=== PATIENT | female | born 1965 ===

== ENCOUNTER 2020-12-31 06:55 | Day surgery (SDC) | payer OTHER, SELFPAY ==
[2020-12-24 11:24] VITALS: BMI 26.2
--- NOTE | 2020-12-26 12:05 | P.CONAN_ITS ---
HPI - Anesthesia Eval Consult details Narrative: 55yo F for Upper Endoscopy PMFSH Past Medical History Medical History Allergic rhinitis Asthma Environmental allergies GERD (gastroesophageal reflux disease) Surgical History Surgical History Hx of colonoscopy Hx of ovarian cystectomy Social History Social History Are you a primary career placement services counselor to a significant other at home: No Do you presently have visiting nurse or other home services: No Use of substances other than those prescribed or required for medical reasons: No Have you been hit, kicked, punched, or otherwise hurt by someone within the past year? If so, by whom?: No Are you DNR?: No Advance Directives: No Advance Directives Information Provided: No Advance Directives on File: No Recently lost weight without trying: No Eating poorly because of decreased appetite: No Nutrition Risks: No Nutritional Risk Patient : No Meds Allergies Allergy/AdvReac Type Severity Reaction Status Date / Time No Known Allergies Allergy Unverified 12/24/20 11:06 Home Medications Medication Instructions Recorded Confirmed Last Taken Type albuterol sulfate [ProAir HFA] 2 puff INHALATION Q6H PRN 12/24/20 12/24/20 Unknown History fexofenadine-pseudoephedrine 1 tab PO Q12H PRN 12/24/20 12/24/20 Unknown History [Ariella-D 12 Hour] fluticasone propionate 1 spray INTRANASAL DAILY 12/24/20 12/24/20 Unknown History omeprazole 20 mg PO DAILY 12/24/20 12/24/20 Unknown History Exam Exam Date and Time: December 26, 2020 1205 Height,Weight and Vital Signs: Height 4 ft 11 in Weight 58.967 kg Assessment and Plan Assessment Anesthesia Assessment: Chart Reviewed
[2020-12-31 07:10] VITALS: BP 145/86; PULSE 85; RESP 16; TEMP 36.6; O2SAT 97
[2020-12-31] MEDS: Lactated Ringers 1,000 ML 100 ML IVCONT (07:24)
--- NOTE | 2020-12-31 07:56 | HO.ANESPROP2 ---
[facility] Past Medical History Medical History Allergic rhinitis Asthma Environmental allergies GERD (gastroesophageal reflux disease) Surgical History Surgical History Hx of colonoscopy Hx of ovarian cystectomy Social History Social History Are you a primary pharmacy customer care specialist to a significant other at home: No Do you presently have visiting nurse or other home services: No Use of substances other than those prescribed or required for medical reasons: No Have you been hit, kicked, punched, or otherwise hurt by someone within the past year? If so, by whom?: No Are you DNR?: No Advance Directives: No Advance Directives Information Provided: No Advance Directives on File: No Recently lost weight without trying: No Eating poorly because of decreased appetite: No Nutrition Risks: No Nutritional Risk Patient : No Meds Allergies Allergy/AdvReac Type Severity Reaction Status Date / Time No Known Allergies Allergy Unverified 12/24/20 11:06 Active Medications: Current Medications Generic Name Dose Route Start Last Admin Trade Name Freq PRN Reason Stop Dose Admin Albuterol Sulfate 2.5 mg 12/31/20 07:03 Albuterol Sulfate (0.083%) 2.5 Mg/3 Ml Vial.Neb INHALE ONCE PRN Shortness of Breath/Wheezing Lactated Ringer's 1,000 mls @ 100 mls/hr 12/31/20 07:15 12/31/20 07:24 Lr IVCONT 100 mls/hr .Q10H ARACELIS Administration Home Medications Medication Instructions Recorded Confirmed Last Taken Type albuterol sulfate [ProAir HFA] 2 puff INHALATION Q6H PRN 12/24/20 12/24/20 Unknown History fexofenadine-pseudoephedrine 1 tab PO Q12H PRN 12/24/20 12/24/20 Unknown History [Ariella-D 12 Hour] fluticasone propionate [Flonase] 1 spray INTRANASAL DAILY 12/24/20 12/24/20 Unknown History omeprazole 20 mg PO DAILY 12/24/20 12/24/20 Unknown History Exam Exam Date and Time: December 31, 2020 0756 Height,Weight and Vital Signs: Height 4 ft 11 in Weight 58.967 kg Last Vital Signs Temp 97.8 F 12/31/20 07:10 Pulse 85 12/31/20 07:10 Resp 16 12/31/20 07:10 BP 145/86 H 12/31/20 07:10 Pulse Ox 97 12/31/20 07:10 Airway Mallampati Class: II TM Dist: >3cm Neck ROM: Full Heart: RRR Lungs: CTA
--- NOTE | 2020-12-31 07:57 | MHC.SHP ---
Pre-Procedural Eval Section B Chief Complaint: reflux Details of Present Illness: see H&P no changes Relevant Family History (Specify if Yes): No Relevant Social History: None Present Medications: see Short Stay Collaborative assessment Medical History: No relevant PMH History of Previous Operations: No relevant previous surgery Allergies: Allergies Allergy/AdvReac Type Severity Reaction Status Date / Time No Known Allergies Allergy Unverified 12/24/20 11:06 Review of Systems Sugical H&P ROS: Negative: Constitution, Cardiovascular, Respiratory, Neurological, Psychiatric, Hem-Onc, Allergic/Immunologic, Gastrointestinal, Genitourinary, Musculoskeletal, Integumentary, Endocrine and Eyes/Ears/Nose/Throat Exam Surgical H&P Exam: Normal: HEENT, Normal: Heart, Normal: Lungs, Normal: Extremities, Normal: Abdomen, Normal: Skin and Normal: Neurological Plan Diagnosis/Plan: Unchanged I have reviewed the history and physical and performed a pertinent physical examination on my patient. No changes have occurred unless specified.
--- NOTE | 2020-12-31 08:15 | PM.OP ---
Brief Operative Note Date of Service: 12/31/20 Pre-op diagnosis: gerd, abnl ugi series Procedure: egd Surgeon: Larry Velez Anesthesia: MAC Was an Table Games Shift Manager used for this Procedure?: No Estimated blood loss (mL): 5 Pathology: other (bxs antrum, egj, duodenum) Condition: stable Disposition: PACU
[2020-12-31 08:19] VITALS: BP 112/67; PULSE 92; RESP 16; TEMP 36.4; O2SAT 96
[2020-12-31 08:34] VITALS: BP 118/79; PULSE 82; RESP 17; TEMP 36.4; O2SAT 97
--- NOTE | 2020-12-31 19:09 | OP_ITS ---
SURGEON: Larry Velez MD INDICATIONS: Gastroesophageal reflux disease and abnormal upper GI series. PREOPERATIVE DIAGNOSIS: POSTOPERATIVE DIAGNOSIS: PROCEDURE PERFORMED: Upper endoscopy with biopsy. ESTIMATED BLOOD LOSS: COMPLICATIONS: ANESTHESIA: ASSISTANTS: SPECIMENS: MEDICATIONS: Monitored anesthesia care. DESCRIPTION OF PROCEDURE: History and physical performed. The risks and benefits of the procedure were explained to the patient. Informed consent was obtained. The patient was placed in the left lateral decubitus position. The Olympus video gastroscope was introduced into the esophagus, stomach, and duodenum. Examination was performed and the scope was removed. She tolerated the procedure well was and was taken to recovery area in stable condition. FINDINGS: ESOPHAGUS: The esophagus was normal. There was no esophagitis. STOMACH: The stomach showed no evidence of masses, ulcers, or polyps. DUODENUM: The bulb and second portion were normal. Biopsies were obtained from the EG junction, antrum, and second portion of the duodenum. IMPRESSION: 1. Gastroesophageal reflux disease. 2. Normal upper endoscopy. RECOMMENDATION: Follow up the biopsy results. MD SIDRA Browne/MODL / [id number]
== END 2020-12-31 09:05 | disposition home or self-care (01) ==
PROVIDERS: PCP Internal Medicine; Visit Provider Internal Medicine Gastroenterology
PROC: 0DJ08ZZ Inspection of Upper Intestinal Tract, Via Natural or Artificial Opening Endoscopic (ICD-10-PCS; CPT 43235; principal; 2020-12-31 08:00)
DX: K21.9 Gastro-esophageal reflux disease without esophagitis (principal); J45.909 Unspecified asthma, uncomplicated; Z79.51 Long term (current) use of inhaled steroids; Z79.899 Other long term (current) drug therapy
CPT/HCPCS: 43239; 88305; 88342

== ENCOUNTER 2022-07-14 07:31 | Day surgery (SDC) | payer OTHER, SELFPAY ==
--- NOTE | 2022-07-13 13:34 | HO.ANESPROP2 ---
Documented by User: Farnaz Goldsmith NP 07/13/22 13:35 HPI - Anesthesia Eval Consult details Narrative: 56yo F for Colonoscopy PMFSH Active Problems Active Problems: All Active Problems (Updated 07/13/22 @ 12:38 by Aisha Colón RN) Asthma (Acute) Past Medical History Medical History Allergic rhinitis Asthma Asthma Environmental allergies GERD (gastroesophageal reflux disease) Tinnitus Family History Family History Mother No problems noted. Surgical History Surgical History Hx of colonoscopy Hx of ovarian cystectomy Social History Social History Housing: House Are you a primary adult caregiver to a significant other at home: No Do you presently have visiting nurse or other home services: No Patient Tobacco Use Status: Never used Tobacco e-Cigarette/Vaping Use: Never Used Second Hand Smoke Exposure: No Are you DNR?: No Advance Directives: No Advance Directives Information Provided: Yes Recently lost weight without trying: No service: No Current occupational status: employed Meds Allergies Allergy/AdvReac Type Severity Reaction Status Date / Time No Known Allergies Allergy Verified 04/29/21 14:54 Home Medications Medication Instructions Recorded Confirmed Last Taken Type fexofenadine 60 mg-pseudoephedrine 1 tab PO Q12H PRN Allergy Symptoms 12/24/20 04/29/21 Unknown History ER 120 mg tablet,ext.release,12 hr (Ariella-D 12 Hour) fluticasone propionate 50 1 spray intranasal DAILY 12/24/20 04/29/21 Unknown History mcg/actuation nasal spray,suspension omeprazole 20 mg capsule,delayed 20 mg PO BID 12/24/20 04/29/21 Unknown History release Exam Exam Date and Time: July 13, 2022 133 Assessment and Plan Assessment Anesthesia Assessment: Chart Reviewed Documented by User: Leela Calderon MD 07/14/22 07:54 PMFSH Past Medical History Medical History Allergic rhinitis Asthma Asthma Environmental allergies GERD (gastroesophageal reflux disease) Tinnitus Family History Family History Mother No problems noted. Surgical History Surgical History Hx of colonoscopy Hx of ovarian cystectomy History of Problems with Anesthesia: No Social History Social History Housing: House Are you a primary adult caregiver to a significant other at home: No Do you presently have visiting nurse or other home services: No Patient Tobacco Use Status: Never used Tobacco e-Cigarette/Vaping Use: Never Used Second Hand Smoke Exposure: No Are you DNR?: No Advance Directives: No Advance Directives Information Provided: Yes Recently lost weight without trying: No service: No Current occupational status: employed Meds Allergies Allergy/AdvReac Type Severity Reaction Status Date / Time No Known Allergies Allergy Verified 04/29/21 14:54 Home Medications Medication Instructions Recorded Confirmed Last Taken Type fexofenadine 60 mg-pseudoephedrine 1 tab PO Q12H PRN Allergy Symptoms 12/24/20 04/29/21 Unknown History ER 120 mg tablet,ext.release,12 hr (Ariella-D 12 Hour) fluticasone propionate 50 1 spray intranasal DAILY 12/24/20 04/29/21 Unknown History mcg/actuation nasal spray,suspension omeprazole 20 mg capsule,delayed 20 mg PO BID 12/24/20 04/29/21 Unknown History release Exam Airway Mallampati Class: II TM Dist: >3cm Neck ROM: Full Loose/Missing/Broken Teeth: No Heart: RRR Lungs: CTA Assessment and Plan Assessment Anesthesia Assessment: Anesthesia Plan Discussed Final Anesthetic Review History of Problems with Anesthesia: No NPO: Yes ASA Class: II Final Preanesthetic Review: Meds/Allgs Chart Reviewed, Consent Obtained/Reviewed and Anes Risks/Benef Reviewed Patient Risk: Low Procedure Risk: Low Anesthetic Plan Anesthetic Plan: MAC: Disposition: Standard PACU
[2022-07-14 07:17] VITALS: BMI 26.7
[2022-07-14 07:34] VITALS: BP 151/96; PULSE 100; RESP 18; TEMP 36.6; O2SAT 99
[2022-07-14] MEDS: Lactated Ringers 1,000 ML 100 ML IVCONT (07:58)
--- NOTE | 2022-07-14 08:32 | MHC.SHP ---
Pre-Procedural Eval Section A Date of Service: 07/14/22 Section B Chief Complaint: screening Details of Present Illness: see H&P no changes Relevant Family History (Specify if Yes): No Relevant Social History: None Present Medications: see Short Stay Collaborative assessment Allergies: Allergies Allergy/AdvReac Type Severity Reaction Status Date / Time No Known Allergies Allergy Verified 04/29/21 14:54 Review of Systems Sugical H&P ROS: Negative: Constitution, Cardiovascular, Respiratory, Neurological, Psychiatric, Hem-Onc, Allergic/Immunologic, Gastrointestinal, Genitourinary, Musculoskeletal, Integumentary, Endocrine and Eyes/Ears/Nose/Throat Exam Surgical H&P Exam: Normal: HEENT, Normal: Heart, Normal: Lungs, Normal: Extremities, Normal: Abdomen, Normal: Skin and Normal: Neurological Plan Diagnosis/Plan: Unchanged I have reviewed the history and physical and performed a pertinent physical examination on my patient. No changes have occurred unless specified. Time Spent With Patient Time: Total time managing care of this patient today ____ minutes.
--- NOTE | 2022-07-14 09:00 | P.BOP_ITS ---
Brief Operative Note Date of Service: 07/14/22 Pre-op diagnosis: screening Post-op diagnosis: same Surgeon: Larry Velez Anesthesia: MAC Was an Crystal Gazer used for this Procedure?: No Estimated blood loss (mL): 2 Pathology: other Condition: stable Disposition: PACU
[2022-07-14 09:02] VITALS: BP 101/67; PULSE 93; RESP 16; TEMP 36.7; O2SAT 96
[2022-07-14 09:17] VITALS: BP 99/66; PULSE 83; RESP 16; TEMP 36.9; O2SAT 100
--- NOTE | 2022-07-14 09:20 | OP_ITS ---
SURGEON: Larry Velez MD INDICATIONS: Colon cancer screening and prior history of adenomatous colon polyps. PREOPERATIVE DIAGNOSIS: POSTOPERATIVE DIAGNOSIS: PROCEDURE PERFORMED: Colonoscopy to the terminal ileum with biopsy. ESTIMATED BLOOD LOSS: COMPLICATIONS: ANESTHESIA: Monitored anesthesia care. ASSISTANTS: SPECIMENS: DESCRIPTION OF PROCEDURE: Date: 07/14/22. History and physical performed. The risks and benefits of the procedure were explained to the patient. Informed consent was obtained. The patient was placed in the left lateral decubitus position. A digital rectal exam was performed and was found to be normal. The Olympus pediatric video colonoscope was introduced into the rectum and advanced to the cecum without difficulty. The cecum was identified by transillumination, palpation, and identification of ileocecal valve. Examination was performed. The scope was removed. She tolerated the procedure well and was returned to the recovery room in stable condition. FINDINGS: The terminal ileum was examined and appeared normal. A single polyp measuring less than 5 mm was identified at 60 cm from the anal verge. This was removed with biopsy forceps. Retroflexed examination showed small internal hemorrhoids. The quality of prep was good. No other polyps were identified. IMPRESSION: Colon polyp. RECOMMENDATION: Follow up the biopsy results. MD SIDRA Browne/JAIR / [id number] MTDD
== END 2022-07-14 09:53 | disposition home or self-care (01) ==
PROVIDERS: PCP Internal Medicine; Visit Provider Internal Medicine Gastroenterology
PROC: 0DJD8ZZ Inspection of Lower Intestinal Tract, Via Natural or Artificial Opening Endoscopic (ICD-10-PCS; CPT 45378; principal; 2022-07-14 09:00)
DX: Z12.11 Encounter for screening for malignant neoplasm of colon (principal); D12.6 Benign neoplasm of colon, unspecified; K64.8 Other hemorrhoids; K21.9 Gastro-esophageal reflux disease without esophagitis; J45.909 Unspecified asthma, uncomplicated; Z86.010 Personal history of colon polyps; Z79.899 Other long term (current) drug therapy
CPT/HCPCS: 45380; 88305

== ENCOUNTER 2022-09-28 08:29 | Outpatient (REF) | payer OTHER, SELFPAY ==
[2022-09-28 08:39] LABS: MANUAL DIFF FLAG NO
[2022-09-28 09:36] LABS: Basophils Percent Auto 0.8 % (0-2); Eosinophils Absolute Auto 0.2 X10*3/uL (0.0-0.4); Eosinophils Percent Auto 4.2 % (0-4); Hematocrit 37.2 % (37.0-47.0); Hemoglobin 12.2 g/dl (12.0-16.0); Imm Gran Abs Auto 0.01 X10*3/uL (0.00-0.03); Imm Gran Pct Auto 0.2 % (0.0-0.4); Lymphocytes Absolute Auto 2.1 X10*3/uL (1.2-4.9); Lymphocytes Percent Auto 41.5 % (20-40); Mean Corpuscular HGB Conc 32.8 g/dl (31.0-35.0); Mean Corpuscular Hemoglobin 29.2 pg (27.0-33.0); Mean Platelet Volume 10.6 fL (9.4-12.3); Monocytes Absolute Auto 0.5 X10*3/uL (0.1-1.2); Monocytes Percent Auto 10.6 % (2-11); Neutrophils Absolute Auto 2.1 x10*3/uL (2.0-8.3); Neutrophils Percent Auto 42.7 % (45-73); Platelet Count 205 X10*3/uL (160-400); Red Blood Count 4.18 X10*6/uL (4.20-5.50)
[2022-09-28 10:07] LABS: Alanine Aminotransferase 35 U/L (0-31); Albumin Level 4.3 g/dL (3.5-5.0); Alkaline Phosphatase 59 U/L (39-117); Anion Gap 13 (12-20); Aspartate Amino Transferase 28 U/L (5-31); Bilirubin Total 0.4 mg/dL (0.0-1.0); Blood Urea Nitrogen 12 mg/dL (9-16); Calcium 9.5 mg/dL (8.4-10.2); Carbon Dioxide 26 mmol/L (22-29); Chloride 108 mmol/L (96-108); Cholesterol 242 mg/dL; Estimated Glomerular Filt Rate > 60; Glucose Fasting 94 mg/dL (60-99); HDL Cholesterol 51 mg/dL; LDL Cholesterol Calculated 162 mg/dl; Potassium 4.6 mmol/L (3.3-5.1); Sodium 142 mmol/L (135-145); Total Protein 7.3 g/dL (6.5-8.0); Triglycerides 146 mg/dL
[2022-09-28 10:24] LABS: Thyroid Stimulating Hormone 3.08 uIU/mL (0.32-4.0)
== END 2022-09-28 08:30 | disposition home or self-care (01) ==
LOC: HO.LAB 08:29
PROVIDERS: PCP Internal Medicine; Visit Provider Internal Medicine
DX: E03.9 Hypothyroidism, unspecified (principal); D64.9 Anemia, unspecified; E78.5 Hyperlipidemia, unspecified; N28.9 Disorder of kidney and ureter, unspecified
CPT/HCPCS: 36415; 80053; 80061; 84443; 85025

== ENCOUNTER 2023-07-08 09:43 | Outpatient (AMB) | payer OTHER, SELFPAY ==
[2023-07-08 09:47] VITALS: BP 132/70; PULSE 83; O2SAT 98; BMI 26.7
--- NOTE | 2023-07-08 09:47 | A.OFFPC_ITS ---
Vital Signs 07/08/23 09:47 Height 4 ft 11 in Weight 132 lb BMI 26.7 BP 132/70 Blood Pressure Location Lt brachial Position Sitting Pulse 83 Pulse Source Pulse Oximeter Pulse Oximetry (%) 98 Oxygen Delivery Method Room Air Intake Visit Reasons: F/u sinus infection Data Modeling Specialist Required: No Manager Packaging: Not Required per policy Accompanied by: Self / Same As Patient Allergies No Known Allergies Allergy (Verified 07/08/23 09:48) Medication List - Last Reconciled 07/08/23 by Russell Torres MD albuterol sulfate 90 mcg/actuation (ProAir HFA) 2 puffs inhalation Q6H PRN fexofenadine-pseudoephedrine 60-120 mg ER (Ariella-D 12 Hour) 1 tab PO Q12H PRN fluticasone propionate 50 mcg/actuation 1 spray intranasal DAILY omeprazole 20 mg PO BID Tobacco use date assessed: 09/23/22 Dental Screening Dental Screen Date: 07/08/23 Did you have a dental visit in the last 12 months?: Yes Did you have a dental problem in the last 6 months where you did not have access to dental care?: No Was dental information given to patient?: Patient has dentist HPI F/u sinus infection HPI Details frontal sinusitis for a week PFSH Medical History Tinnitus Asthma Environmental allergies Allergic rhinitis Asthma GERD (gastroesophageal reflux disease) Surgical History Hx of ovarian cystectomy Hx of colonoscopy Family History Mother No problems noted. Social History Housing: House Are you a primary health care manager to a significant other at home: No Do you presently have visiting nurse or other home services: No Patient Tobacco Use Status: Never used Tobacco e-Cigarette/Vaping Use: Never Used Second Hand Smoke Exposure: No service: No Current occupational status: employed Cognitive needs: No Hearing needs: No Vision needs: No Questionnaire Thrive Questionnaire Date Thrive assessed: 09/23/22 LINDSAY-7 AMB Questionnaire LINDSAY-7 Date LINDSAY - 7 assessed: 09/23/22 Source: Developed by Drs. Raymond Gibson, Louisa Morrison, Femi Thrasher and colleagues, with an educational judson from [employer]. Review of Systems Const Denies chills, Denies headache(s) and Denies weight loss ENT Denies headache(s) Card Denies chest pain, Denies syncope, Denies irregular heart rhythm and Denies dyspnea Resp Denies chest congestion, Denies cough and Denies dyspnea GI Denies abdominal pain, Denies change in stool character, Denies nausea and Denies vomiting Musc Denies deformity and Denies joint swelling Neuro Denies syncope and Denies headache(s) Physical exam (Primary Care) Vital Signs: Last Vital Signs Pulse 83 07/08/23 09:47 BP 132/70 07/08/23 09:47 Pulse Ox 98 07/08/23 09:47 Oxygen Delivery Method Room Air 07/08/23 09:47 BMI result Body Mass Index 26.7 Tobacco/Smoking Status: Tobacco use Status Tobacco use date assessed 09/23/22 07/08/23 09:51 Patient Tobacco Use Status Never used Tobacco 07/08/23 09:51 Tobacco use type 06/04/22 14:02 e-Cigarette/Vaping Use Never Used 07/08/23 09:51 Thrive Assessment: Date of Thrive Assessment Date Thrive assessed 09/23/22 07/08/23 09:51 Const General: cooperative, comfortable, no acute distress and alert Neck Neck: Yes no lymphadenopathy Thyroid: Thyroid normal Resp Effort & Inspection: normal respiratory effort Auscultation: clear to auscultation bilaterally Percussion: percussion normal Cardio Jugular venous distension: no JVD Palpation: normal PMI Rate: regular rate Rhythm: regular rhythm Heart sounds: S1 normal heart sound present and S2 normal heart sound present GI Inspection: Yes normal to inspection Palpation (GI): No hepatosplenomegaly present Skin General skin exam: no rashes or lesions noted Extrem General: Yes no clubbing, cyanosis or edema Assessment and Plan Assessment & Plan (1) Sinusitis: Code(s): J32.9 - Chronic sinusitis, unspecified Plan: rx Medications: New azithromycin take 500 mg today (day 1), then 250 mg for 4 days (days 2-5) PO 6 tabs 0RF Coding Level of Care Code Est Pt Level 3 (79121) Diagnoses Sinusitis J32.9
== END 2023-07-08 10:03 | disposition home or self-care (01) ==
PROVIDERS: PCP Internal Medicine; Visit Provider Internal Medicine
DX: J32.9 Chronic sinusitis, unspecified (principal)
CPT/HCPCS: 99213

== ENCOUNTER 2023-09-27 12:57 | Outpatient (AMB) | payer OTHER, SELFPAY ==
[2023-09-27 12:59] VITALS: BP 124/70; PULSE 88; O2SAT 97; BMI 26.7
--- NOTE | 2023-09-27 12:59 | A.OFFPC_ITS ---
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 Freight Manager: Not Required per policy Accompanied by: Self / Same As Patient Allergies No Known Allergies Allergy (Verified 09/27/23 12:59) Medication List - Last Reconciled 09/27/23 by Russell Torres MD albuterol sulfate 90 mcg/actuation (ProAir HFA) 2 puffs inhalation Q6H PRN fexofenadine-pseudoephedrine 60-120 mg ER (Ariella-D 12 Hour) 1 tab PO Q12H PRN fluticasone propionate 50 mcg/actuation 1 spray intranasal DAILY omeprazole 20 mg PO BID Tobacco use date assessed: 09/27/23 Dental Screening Dental Screen Date: 09/27/23 Did you have a dental visit in the last 12 months?: Yes Did you have a dental problem in the last 6 months where you did not have access to dental care?: No Was dental information given to patient?: Patient has dentist HPI Annual Exam HPI Details asthma and allergic rhinitis [facility] Medical History Tinnitus Asthma Environmental allergies Allergic rhinitis Asthma GERD (gastroesophageal reflux disease) Surgical History Hx of ovarian cystectomy Hx of colonoscopy Family History Mother No problems noted. Social History Housing: House Are you a primary childbirth and infant care teacher to a significant other at home: No Do you presently have visiting nurse or other home services: No Patient Tobacco Use Status: Never used Tobacco e-Cigarette/Vaping Use: Never Used Second Hand Smoke Exposure: No service: No Current occupational status: employed Cognitive needs: No Hearing needs: No Vision needs: No Questionnaire PHQ-9 Over the last 2 weeks, how often have you been bothered by any of the following problems? 1. Little interest or pleasure in doing things: not at all 2. Feeling down, depressed, or hopeless: not at all 3. Trouble falling or staying asleep, or sleeping too much: not at all 4. Feeling tired or having little energy: not at all 5. Poor appetite or overeating: not at all 6. Feeling bad about yourself - or that you are a failure or have let yourself or your family down: not at all 7. Trouble concentrating on things, such as reading the newspaper or watching television: not at all 8. Moving or speaking so slowly that other people could have noticed. Or the opposite - being so fidgety or restless that you have been moving around a lot more than usual: not at all 9. Thoughts that you would be better off or of hurting yourself in some way: not at all Total score: 0 Depression Screening Interpretation: Negative Depression Screening Done: Yes 97298 - PHQ-9 Billing: Yes Source: Developed by Drs. Raymond Gibson, Louisa Morrison, Femi Thrasher and colleagues, with an educational judson from [employer]. Thrive Questionnaire Date Thrive assessed: 09/27/23 I am a: Patient What is your living situation today?: I have a steady place to live Within the past 12 months, did the food you bought not last and you didn't have the money to get more?: Never true Within the past 12 months, did you worry whether your food would run out before you got money to buy more?: Never true Do you have trouble paying for medicines?: No Do you have trouble getting transportation to medical appointments?: No Do you have trouble paying your heating and electricity bill?: No Do you have trouble taking care of your child, family member or friend?: No Do you have trouble with day-to-day activities such as bathing, preparing meals, shopping, managing finances, etc.?: No Are you currently unemployed and looking for a job?: No Are you interested in more education?: No Please select the resources that you would like help with: None THRIVE Score: 0 AUDIT C Alcohol Use Questionnaire (AUDIT-C) 1. How often do you have a drink containing alcohol?: Never Total Score: 0 Score Reviewed/Action Taken: No LINDSAY-7 AMB Questionnaire LINDSAY-7 Date LINDSAY - 7 assessed: 09/27/23 Feeling nervous, anxious, or on edge: 0 = Not at all Not being able to stop or control worryin = Not at all Worrying too much about different things: 0 = Not at all Trouble relaxin = Not at all Being so restless that it is hard to sit still: 0 = Not at all Becoming easily annoyed or irritable: 0 = Not at all Feeling afraid as if something awful might happen: 0 = Not at all Total LINDSAY-7 score (0-4 normal; 5-9 mild; 10-14 moderate; 15-21 severe): 0 Source: Developed by Drs. Raymond Gibson, Louisa Morrison, Femi Thrasher and colleagues, with an educational judson from [employer]. LINDSAY-7 Assessment Billing LINDSAY-7 Assessment Tool: LINDSAY-7 Assessment 01984 Review of Systems Const Denies chills, Denies fatigue, Denies headache(s) and Denies weight loss Eyes Denies change in vision, Denies diplopia and Denies eye pain ENT Denies vertigo, Denies dizziness, Denies headache(s) and Denies nasal discharge Card Denies chest pain, Denies rapid heart rate and Denies dyspnea on exertion Resp Denies chest congestion, Denies cough, Denies pain with cough and Denies dyspnea on exertion GI Denies abdominal pain, Denies hematochezia and Denies change in bowel habits Musc Denies myalgias, Denies arthralgias and Denies joint swelling Skin/Breast Denies lesions and Denies unusual bruising Neuro Denies vertigo, Denies dizziness, Denies headache(s) and Denies focal weakness Endo Denies fatigue Physical exam (Primary Care) Vital Signs: Last Vital Signs Pulse 88 09/27/23 12:59 BP 124/70 09/27/23 12:59 Pulse Ox 97 09/27/23 12:59 Oxygen Delivery Method Room Air 09/27/23 12:59 BMI result Body Mass Index 26.7 Tobacco/Smoking Status: Tobacco use Status Tobacco use date assessed 09/27/23 09/27/23 13:05 Patient Tobacco Use Status Never used Tobacco 09/27/23 13:05 Tobacco use type 06/04/22 14:02 e-Cigarette/Vaping Use Never Used 09/27/23 13:05 PHQ-9: PHQ-9 Score PHQ-9: Total score 0 09/27/23 13:05 Depression Screening Interpretation: Negative Thrive Assessment: Date of Thrive Assessment Date Thrive assessed 09/27/23 09/27/23 13:05 Const General: cooperative, healthy appearing and no acute distress Orientation/consciousness: oriented to person, oriented to place and oriented to time HENMT Head: Yes normal to inspection, Yes normocephalic and Yes atraumatic Mouth: Normal oral and palatal mucosa present and tongue normal Throat: Yes posterior oropharynx normal and Yes uvula midline Eyes General: appearance normal, both eyes and all related structures Neck Neck: Yes normal visual inspection, Yes full ROM and Yes no lymphadenopathy Thyroid: Thyroid normal Carotids: normal carotid upstroke Chest Chest palpation & inspection: normal inspection of the chest Resp Effort & Inspection: normal respiratory effort and able to speak in complete sentences Auscultation: clear to auscultation bilaterally Cardio Jugular venous distension: no JVD Palpation: normal PMI Rate: regular rate Rhythm: regular rhythm Heart sounds: S1 normal heart sound present and S2 normal heart sound present GI Inspection: Yes normal to inspection Palpation (GI): Soft to palpation and No hepatosplenomegaly present Auscultation: normal bowel sounds General: Yes no CVA tenderness Back/Spine/Pelvis Back: no CVA tenderness Skin General skin exam: no rashes or lesions noted Neuro General: oriented to person, oriented to place and oriented to time Extrem General: Yes normal to inspection and Yes full ROM Assessment and Plan Assessment & Plan (1) Physical exam: Code(s): Z00.00 - Encounter for general adult medical examination without abnormal findings Plan: labs (2) Asthma: Code(s): J45.909 - Unspecified asthma, uncomplicated Plan: stable; same rx Orders: Orders Comprehensive [place]. Panel Fast Today N28.9 - Disorder of kidney and ureter, unspecified Lipid Panel Today E78.5 - Hyperlipidemia, unspecified Thyroid Stimulating Hormone Today E03.9 - Hypothyroidism, unspecified Complete Blood Count Auto Diff Today D64.9 - Anemia, unspecified Referrals Ear/Nose/Throat Referral H61.20 - Impacted cerumen, unspecified ear Coding Level of Care Code Est Pt Prev Care 40-64y(79021) Diagnoses Physical exam Z00.00 Asthma J45.909 Additional Codes LINDSAY-7 Assessment Billing - LINDSAY-7 Assessment Tool: LINDSAY-7 Assessment 25453 ([id number])
== END 2023-09-27 13:19 | disposition home or self-care (01) ==
PROVIDERS: Visit Provider Internal Medicine
DX: Z00.00 Encounter for general adult medical examination without abnormal findings (principal); J45.909 Unspecified asthma, uncomplicated
CPT/HCPCS: 99396

== ENCOUNTER 2024-04-13 11:43 | Outpatient (AMB) | payer OTHER, SELFPAY ==
--- NOTE | 2024-04-13 11:43 | A.OFFPC_ITS ---
Vital Signs 04/13/24 11:44 Height 4 ft 11 in Weight 129 lb BMI 26.1 BP 118/74 Blood Pressure Location Lt brachial Position Sitting Pulse 87 Pulse Source Pulse Oximeter Pulse Oximetry (%) 98 Oxygen Delivery Method Room Air Intake Visit Reasons: Possible strep throat Rating Specialist Required: No Accompanied by: Self / Same As Patient Allergies No Known Allergies Allergy (Verified 04/13/24 11:44) Tobacco use date assessed: 09/27/23 Dental Screening Dental Screen Date: 09/27/23 HPI Possible strep throat HPI Details sore throat for a few days; covid neg [facility] Medical History Tinnitus Asthma Environmental allergies Allergic rhinitis Asthma GERD (gastroesophageal reflux disease) Surgical History Hx of ovarian cystectomy Hx of colonoscopy Family History Mother No problems noted. Social History Housing: House Are you a primary care trainer to a significant other at home: No Do you presently have visiting nurse or other home services: No Patient Tobacco Use Status: Never used Tobacco Tobacco use type: Cigarette e-Cigarette/Vaping Use: Never Used Second Hand Smoke Exposure: No service: No Current occupational status: employed Cognitive needs: No Hearing needs: No Vision needs: No Questionnaire PHQ-9 Over the last 2 weeks, how often have you been bothered by any of the following problems? 1. Little interest or pleasure in doing things: not at all 2. Feeling down, depressed, or hopeless: not at all 3. Trouble falling or staying asleep, or sleeping too much: not at all 4. Feeling tired or having little energy: not at all 5. Poor appetite or overeating: not at all 6. Feeling bad about yourself - or that you are a failure or have let yourself or your family down: not at all 7. Trouble concentrating on things, such as reading the newspaper or watching television: not at all 8. Moving or speaking so slowly that other people could have noticed. Or the opposite - being so fidgety or restless that you have been moving around a lot more than usual: not at all 9. Thoughts that you would be better off or of hurting yourself in some way: not at all Total score: 0 Depression Screening Interpretation: Negative Depression Screening Done: Yes [id number] - PHQ-9 Billing: Yes Source: Developed by Drs. Raymond Gibson, Louisa Morrison, Femi Thrasher and colleagues, with an educational judson from [employer]. Thrive Questionnaire Date Thrive assessed: 09/27/23 AUDIT C Alcohol Use Questionnaire (AUDIT-C) 1. How often do you have a drink containing alcohol?: Never Total Score: 0 Score Reviewed/Action Taken: No LINDSAY-7 AMB Questionnaire LINDSAY-7 Date LINDSAY - 7 assessed: 09/27/23 Source: Developed by Drs. Raymond Gibson, Louisa Morrison, Femi Thrasher and colleagues, with an educational judson from [employer]. Review of Systems Const Denies chills, Denies headache(s) and Denies weight loss ENT Denies headache(s) Card Denies chest pain, Denies syncope, Denies irregular heart rhythm and Denies dyspnea Resp Denies chest congestion, Denies cough and Denies dyspnea GI Denies abdominal pain, Denies change in stool character, Denies nausea and Denies vomiting Musc Denies deformity and Denies joint swelling Neuro Denies syncope and Denies headache(s) Physical exam (Primary Care) Vital Signs: Last Vital Signs Pulse 87 04/13/24 11:44 BP 118/74 04/13/24 11:44 Pulse Ox 98 04/13/24 11:44 Oxygen Delivery Method Room Air 04/13/24 11:44 BMI result Body Mass Index 26.1 Tobacco/Smoking Status: Tobacco use Status Tobacco use date assessed 09/27/23 04/13/24 11:48 Patient Tobacco Use Status Never used Tobacco 04/13/24 11:48 Tobacco use type Cigarette 04/13/24 11:48 e-Cigarette/Vaping Use Never Used 04/13/24 11:48 PHQ-9: PHQ-9 Score PHQ-9: Total score 0 04/13/24 11:48 Depression Screening Interpretation: Negative Thrive Assessment: Date of Thrive Assessment Date Thrive assessed 09/27/23 04/13/24 11:48 Const General: cooperative, comfortable, no acute distress and alert Neck Neck: Yes no lymphadenopathy Thyroid: Thyroid normal Resp Effort & Inspection: normal respiratory effort Auscultation: clear to auscultation bilaterally Percussion: percussion normal Cardio Jugular venous distension: no JVD Palpation: normal PMI Rate: regular rate Rhythm: regular rhythm Heart sounds: S1 normal heart sound present and S2 normal heart sound present GI Inspection: Yes normal to inspection Palpation (GI): No hepatosplenomegaly present Skin General skin exam: no rashes or lesions noted Extrem General: Yes no clubbing, cyanosis or edema Assessment and Plan Assessment & Plan (1) Acute sore throat: Code(s): J02.9 - Acute pharyngitis, unspecified Plan: rx sent Medications: New azithromycin take 500 mg today (day 1), then 250 mg for 4 days (days 2-5) PO 6 tabs 0RF Coding Level of Care Code Est Pt Level 3 (21164) Diagnoses Acute sore throat J02.9
[2024-04-13 11:44] VITALS: BP 118/74; PULSE 87; O2SAT 98; BMI 26.1
== END 2024-04-13 11:51 | disposition home or self-care (01) ==
PROVIDERS: PCP Internal Medicine; Visit Provider Internal Medicine
DX: J02.9 Acute pharyngitis, unspecified (principal)
CPT/HCPCS: 99213

== ENCOUNTER 2024-09-11 09:34 | Outpatient (AMB) | payer OTHER, SELFPAY ==
--- NOTE | 2024-09-11 09:51 | MHC.PC.OV ---
Vital Signs 09/11/24 09:53 Height 4 ft 11 in Weight 126 lb BMI 25.4 BP 112/70 Blood Pressure Location Lt brachial Position Sitting Pulse 99 Pulse Source Pulse Oximeter Temp 96.9 F Temp Source Skin Pulse Oximetry (%) 99 Oxygen Delivery Method Room Air Intake Visit Reasons: Flu / Cough Intake Note: Patient is here to follow up on flu, cough and fainted yesterday. Senior Linux Systems Engineer Required: No Director Of Catering Sales: Not Required per policy Accompanied by: Self / Same As Patient Allergies ondansetron Allergy (Intermediate, Verified 09/11/24 09:58) Diarrhea Medication List - Last Reconciled 09/11/24 by Russell Torres MD albuterol sulfate 90 mcg/actuation (ProAir HFA) 2 puffs inhalation Q6H PRN fexofenadine-pseudoephedrine 60-120 mg ER (Arielal-D 12 Hour) 1 tab PO Q12H PRN fluticasone propionate 50 mcg/actuation 1 spray intranasal DAILY omeprazole 20 mg PO BID Tobacco use date assessed: 09/11/24 Dental Screening Dental Screen Date: 09/11/24 Did you have a dental visit in the last 12 months?: Yes Did you have a dental problem in the last 6 months where you did not have access to dental care?: No Was dental information given to patient?: Patient has dentist HPI Flu / Cough HPI Details cough for a week PFSH Medical History Tinnitus Asthma Environmental allergies Allergic rhinitis Asthma GERD (gastroesophageal reflux disease) Surgical History Hx of ovarian cystectomy Hx of colonoscopy Family History Mother No problems noted. Social History Housing: House Are you a primary career law clerk to a significant other at home: No Do you presently have visiting nurse or other home services: No Patient Tobacco Use Status: Never used Tobacco Tobacco use type: Cigarette e-Cigarette/Vaping Use: Never Used Second Hand Smoke Exposure: No service: No Current occupational status: employed Cognitive needs: No Hearing needs: No Vision needs: No Questionnaire PHQ-9 Over the last 2 weeks, how often have you been bothered by any of the following problems? 1. Little interest or pleasure in doing things: not at all 2. Feeling down, depressed, or hopeless: not at all 3. Trouble falling or staying asleep, or sleeping too much: not at all 4. Feeling tired or having little energy: not at all 5. Poor appetite or overeating: not at all 6. Feeling bad about yourself - or that you are a failure or have let yourself or your family down: not at all 7. Trouble concentrating on things, such as reading the newspaper or watching television: not at all 8. Moving or speaking so slowly that other people could have noticed. Or the opposite - being so fidgety or restless that you have been moving around a lot more than usual: not at all 9. Thoughts that you would be better off or of hurting yourself in some way: not at all Total score: 0 Depression Screening Interpretation: Negative Depression Screening Done: Yes Source: Developed by Drs. Raymond Gibson, Louisa Morrison, Femi Thrasher and colleagues, with an educational judson from [employer]. Thrive Questionnaire Date Thrive assessed: 09/11/24 I am a: Patient What is your living situation today?: I have a steady place to live Within the past 12 months, did the food you bought not last and you didn't have the money to get more?: Never true Within the past 12 months, did you worry whether your food would run out before you got money to buy more?: Never true Do you have trouble paying for medicines?: No Do you have trouble getting transportation to medical appointments?: No Do you have trouble paying your heating and electricity bill?: No Do you have trouble taking care of your child, family member or friend?: No Do you have trouble with day-to-day activities such as bathing, preparing meals, shopping, managing finances, etc.?: No Are you currently unemployed and looking for a job?: No Are you interested in more education?: No Please select the resources that you would like help with: None Currently or been in a relationship where the following occur: No concerns reported THRIVE Score: 0 AUDIT C Alcohol Use Questionnaire (AUDIT-C) 1. How often do you have a drink containing alcohol?: Never Total Score: 0 LINDSAY-7 AMB Questionnaire LINDSAY-7 Date LINDSAY - 7 assessed: 09/11/24 Feeling nervous, anxious, or on edge: 0 = Not at all Not being able to stop or control worryin = Not at all Worrying too much about different things: 0 = Not at all Trouble relaxin = Not at all Being so restless that it is hard to sit still: 0 = Not at all Becoming easily annoyed or irritable: 0 = Not at all Feeling afraid as if something awful might happen: 0 = Not at all Total LINDSAY-7 score (0-4 normal; 5-9 mild; 10-14 moderate; 15-21 severe): 0 Source: Developed by Drs. Raymond Gibson, Louisa Morrison, Femi Thrasher and colleagues, with an educational judson from [employer]. Review of Systems Const Denies chills, Denies headache(s) and Denies weight loss ENT Denies headache(s) Card Denies chest pain, Denies syncope, Denies irregular heart rhythm and Denies dyspnea Resp Denies chest congestion, Reports cough and Denies dyspnea GI Denies abdominal pain, Denies change in stool character, Denies nausea and Denies vomiting Musc Denies deformity and Denies joint swelling Neuro Denies syncope and Denies headache(s) Physical exam (Primary Care) Vital Signs: Last Vital Signs Temp 96.9 F 09/11/24 09:53 Pulse 99 09/11/24 09:53 BP 112/70 09/11/24 09:53 Pulse Ox 99 09/11/24 09:53 Oxygen Delivery Method Room Air 09/11/24 09:53 BMI result Body Mass Index 25.4 Tobacco/Smoking Status: Tobacco use Status Tobacco use date assessed 09/11/24 09/11/24 09:59 Patient Tobacco Use Status Never used Tobacco 09/11/24 09:53 Tobacco use type Cigarette 09/11/24 09:53 e-Cigarette/Vaping Use Never Used 09/11/24 09:53 PHQ-9: PHQ-9 Score PHQ-9: Total score 0 09/11/24 09:53 Depression Screening Interpretation: Negative Thrive Assessment: Date of Thrive Assessment Date Thrive assessed 09/11/24 09/11/24 09:53 Currently or been in a relationship where the following occur: No concerns reported Const General: cooperative, comfortable, no acute distress and alert Neck Neck: Yes no lymphadenopathy Thyroid: Thyroid normal Resp Effort & Inspection: normal respiratory effort Auscultation: clear to auscultation bilaterally Percussion: percussion normal Cardio Jugular venous distension: no JVD Palpation: normal PMI Rate: regular rate Rhythm: regular rhythm Heart sounds: S1 normal heart sound present and S2 normal heart sound present GI Inspection: Yes normal to inspection Palpation (GI): No hepatosplenomegaly present Skin General skin exam: no rashes or lesions noted Extrem General: Yes no clubbing, cyanosis or edema Coding Level of Care Code Est Pt Level 3 (58581) Diagnoses Cough R05.9 Assessment & Plan Assessment & Plan (1) Cough: Code(s): R05.9 - Cough, unspecified Plan: rx sent Medications: New amoxicillin-pot clavulanate 500-125 mg (Augmentin) 1 tab PO BID 10 tabs 0RF
[2024-09-11 09:53] VITALS: BP 112/70; PULSE 99; TEMP 36.1; O2SAT 99; BMI 25.4
== END 2024-09-11 10:09 | disposition home or self-care (01) ==
PROVIDERS: PCP Internal Medicine; Visit Provider Internal Medicine
DX: R05.9 Cough, unspecified (principal)

== ENCOUNTER → 2024-09-11 09:34 | Outpatient (BNVA) | payer OTHER, SELFPAY | PROVIDERS: PCP Internal Medicine; Visit Provider Internal Medicine ==

== ENCOUNTER 2024-09-28 12:53 | Outpatient (AMB) | payer OTHER, SELFPAY ==
[2024-09-28 12:56] VITALS: BP 112/72; PULSE 96; O2SAT 98; BMI 26.1
--- NOTE | 2024-09-28 12:56 | MHC.PC.OV ---
Vital Signs 09/28/24 12:56 Height 4 ft 11 in Weight 129 lb 4 oz BMI 26.1 BP 112/72 Blood Pressure Location Lt brachial Position Sitting Pulse 96 Pulse Source Pulse Oximeter Pulse Oximetry (%) 98 Oxygen Delivery Method Room Air Intake Visit Reasons: pe Computer Laboratory Technician Required: No Accompanied by: Self / Same As Patient Allergies ondansetron Allergy (Intermediate, Verified 09/28/24 12:56) Diarrhea Medication List - Last Reconciled 09/28/24 by Russell Torres MD albuterol sulfate 90 mcg/actuation (ProAir HFA) 2 puffs inhalation Q6H PRN amoxicillin-pot clavulanate 500-125 mg (Augmentin) 1 tab PO BID fexofenadine-pseudoephedrine 60-120 mg ER (Ariella-D 12 Hour) 1 tab PO Q12H PRN fluticasone propionate 50 mcg/actuation 1 spray intranasal DAILY omeprazole 20 mg PO BID Tobacco use date assessed: 09/28/24 Dental Screening Dental Screen Date: 09/28/24 Did you have a dental visit in the last 12 months?: Yes Did you have a dental problem in the last 6 months where you did not have access to dental care?: No Was dental information given to patient?: Patient has dentist HPI pe HPI Details mild asthma PFSH Medical History Tinnitus Asthma Environmental allergies Allergic rhinitis Asthma GERD (gastroesophageal reflux disease) Surgical History Hx of ovarian cystectomy Hx of colonoscopy Family History Mother No problems noted. Social History Housing: House Are you a primary family member caretaker to a significant other at home: No Do you presently have visiting nurse or other home services: No Patient Tobacco Use Status: Never used Tobacco Tobacco use type: Cigarette e-Cigarette/Vaping Use: Never Used Second Hand Smoke Exposure: No service: No Current occupational status: employed Cognitive needs: No Hearing needs: No Vision needs: No Questionnaire PHQ-9 Over the last 2 weeks, how often have you been bothered by any of the following problems? 1. Little interest or pleasure in doing things: not at all 2. Feeling down, depressed, or hopeless: not at all 3. Trouble falling or staying asleep, or sleeping too much: not at all 4. Feeling tired or having little energy: not at all 5. Poor appetite or overeating: not at all 6. Feeling bad about yourself - or that you are a failure or have let yourself or your family down: not at all 7. Trouble concentrating on things, such as reading the newspaper or watching television: not at all 8. Moving or speaking so slowly that other people could have noticed. Or the opposite - being so fidgety or restless that you have been moving around a lot more than usual: not at all 9. Thoughts that you would be better off or of hurting yourself in some way: not at all Total score: 0 Source: Developed by Drs. Raymond Gibson, Louisa Morrison, Femi Thrasher and colleagues, with an educational judson from [employer]. Thrive Questionnaire Date Thrive assessed: 09/28/24 I am a: Patient What is your living situation today?: I have a steady place to live Within the past 12 months, did the food you bought not last and you didn't have the money to get more?: Never true Within the past 12 months, did you worry whether your food would run out before you got money to buy more?: Never true Do you have trouble paying for medicines?: No Do you have trouble getting transportation to medical appointments?: No Do you have trouble paying your heating and electricity bill?: No Do you have trouble taking care of your child, family member or friend?: No Do you have trouble with day-to-day activities such as bathing, preparing meals, shopping, managing finances, etc.?: No Are you currently unemployed and looking for a job?: No Are you interested in more education?: No Please select the resources that you would like help with: None Currently or been in a relationship where the following occur: No concerns reported THRIVE Score: 0 AUDIT C Alcohol Use Questionnaire (AUDIT-C) 1. How often do you have a drink containing alcohol?: Never 3. How often do you have six or more drinks on one occasion?: Never Total Score: 0 LINDSAY-7 AMB Questionnaire LINDSAY-7 Date LINDSAY - 7 assessed: 09/28/24 Feeling nervous, anxious, or on edge: 0 = Not at all Not being able to stop or control worryin = Not at all Worrying too much about different things: 0 = Not at all Trouble relaxin = Not at all Being so restless that it is hard to sit still: 0 = Not at all Becoming easily annoyed or irritable: 0 = Not at all Feeling afraid as if something awful might happen: 0 = Not at all Total LINDSAY-7 score (0-4 normal; 5-9 mild; 10-14 moderate; 15-21 severe): 0 Source: Developed by Drs. Raymond Gibson, Louisa Morrison, Femi Thrasher and colleagues, with an educational judson from [employer]. Review of Systems Const Denies chills, Denies fatigue, Denies headache(s) and Denies weight loss Eyes Denies change in vision, Denies diplopia and Denies eye pain ENT Denies vertigo, Denies dizziness, Denies headache(s) and Denies nasal discharge Card Denies chest pain, Denies rapid heart rate and Denies dyspnea on exertion Resp Denies chest congestion, Denies cough, Denies pain with cough and Denies dyspnea on exertion GI Denies abdominal pain, Denies hematochezia and Denies change in bowel habits Musc Denies myalgias, Denies arthralgias and Denies joint swelling Skin/Breast Denies lesions and Denies unusual bruising Neuro Denies vertigo, Denies dizziness, Denies headache(s) and Denies focal weakness Endo Denies fatigue Physical exam (Primary Care) Vital Signs: Last Vital Signs Pulse 96 09/28/24 12:56 BP 112/72 09/28/24 12:56 Pulse Ox 98 09/28/24 12:56 Oxygen Delivery Method Room Air 09/28/24 12:56 BMI result Body Mass Index 26.1 Tobacco/Smoking Status: Tobacco use Status Tobacco use date assessed 09/28/24 09/28/24 12:57 Patient Tobacco Use Status Never used Tobacco 09/28/24 12:57 Tobacco use type Cigarette 09/28/24 12:57 e-Cigarette/Vaping Use Never Used 09/28/24 12:57 PHQ-9: PHQ-9 Score PHQ-9: Total score 0 09/28/24 12:57 Thrive Assessment: Date of Thrive Assessment Date Thrive assessed 09/28/24 09/28/24 12:57 Currently or been in a relationship where the following occur: No concerns reported Const General: cooperative, healthy appearing and no acute distress Orientation/consciousness: oriented to person, oriented to place and oriented to time HENMT Head: Yes normal to inspection, Yes normocephalic and Yes atraumatic Mouth: Normal oral and palatal mucosa present and tongue normal Throat: Yes posterior oropharynx normal and Yes uvula midline Eyes General: appearance normal, both eyes and all related structures Neck Neck: Yes normal visual inspection, Yes full ROM and Yes no lymphadenopathy Thyroid: Thyroid normal Carotids: normal carotid upstroke Chest Chest palpation & inspection: normal inspection of the chest Resp Effort & Inspection: normal respiratory effort and able to speak in complete sentences Auscultation: clear to auscultation bilaterally Cardio Jugular venous distension: no JVD Palpation: normal PMI Rate: regular rate Rhythm: regular rhythm Heart sounds: S1 normal heart sound present and S2 normal heart sound present GI Inspection: Yes normal to inspection Palpation (GI): Soft to palpation and No hepatosplenomegaly present Auscultation: normal bowel sounds General: Yes no CVA tenderness Back/Spine/Pelvis Back: no CVA tenderness Skin General skin exam: no rashes or lesions noted Neuro General: oriented to person, oriented to place and oriented to time Extrem General: Yes normal to inspection and Yes full ROM Coding Level of Care Code Est Pt Prev Care 40-64y(19607) Diagnoses Physical exam Z00.00 Asthma J45.909 Assessment & Plan Assessment & Plan (1) Physical exam: Code(s): Z00.00 - Encounter for general adult medical examination without abnormal findings Category: Medical Plan: stable; do labs (2) Asthma: Code(s): J45.909 - Unspecified asthma, uncomplicated Category: Medical Plan: stable; same rx Orders: Orders Complete Blood Count Auto Diff Today Z13.0 - Encounter for screening for diseases of the blood and blood-forming organs and certain disorders involving the immune mechanism Lipid Panel Today Z13.220 - Encounter for screening for lipoid disorders Thyroid Stimulating Hormone Today Z13.29 - Encounter for screening for other suspected endocrine disorder Comprehensive [place]. Panel Fast Today Z13.9 - Encounter for screening, unspecified
--- OUTSIDE RECORDS SUMMARY | 2024-09-28 15:20 | XMS_ITS | Patient Health Record ---
Author Organization [facility] Address [address] [place] [address] Care Team Providers Care Guide Setter Name Role Phone Brian BLOOM, Russell Primary Care Provider Unavaila Larry Arceo Jr Unavailable [phone] Jr Burch MD Unavailable Unavailable ALLERGIES No Known Allergies REASON FOR REFERRAL No Information MEDICATIONS Medication SIG (Take, Route, Frequency, Duration) Notes Start Date End Date Status Advil Active Biotin Active Omeprazole 20 MG 1 capsule Orally Twi ce a day for 30 days 07/14/2021 Active Vitamin C Active MiraLax (colon prep) 17 GM/SCOOP mixed with Gatorade or Crystal Light Orally begin at 5:00 p.m. the day before the procedure for 1 day 06/05/2022 Active IMMUNIZATIONS Vaccine Route Administration Date Status Comme nts Influenza Unknown 11/27/2020 Refused Influenza Unknown 07/14/2021 Refused SOCIAL HISTORY Tobacco Use: Social History Observation Description Date Details (start date - stop date) Never Smoker NA - NA Sex Assigned At : Social History Observation Description Sex Assigned At Unknown Tobacco Use/Smoking Question Answer Notes Patient is a nonsmoker Alcohol Screen Question Answer Notes Did you have a drink containing alcohol in the p ast year? No Points 0 Interpretation Negative PROBLEMS Problem Type ICD Code Onset Dates Problem Status W/U Status Risk SNOMED Code Notes Problem Colon cancer screening (Z12.11) Active confirmed 909373688 Problem Gastroesophageal reflux disease without esophagitis (K21.9) Active confirmed 970080745 Problem Abnormal barium swallow (R93.3) Active confirmed 414244141 PLAN OF TREATMENT Future Test Test Name Order Date UPPER GI ENDOSCOPY 11/27/2020 COLONOSCOPY 06/05/2022 Insurance Providers Payer Name Payer Address Payer Phone Subscriber Number Group Number Insured Name Patient Relationship to Insured Coverage Start Date Coverage End Date [facility] [address] [place] [phone] [id number] AGNES LOJA Self - patient is the insured MEDICAL (GENERAL) HISTORY Medical History History ICD Code Tinnitus seasonal allergies Gastroesophageal reflux disease, upper e ndoscopy 12/31/20, normal, no HP or BE Colon polyps, colonoscopy age 51, tubula r adenoma, five-year followup Surgical History Surgery Date(Month/Year)
== END 2024-09-28 13:18 | disposition home or self-care (01) ==
PROVIDERS: PCP Internal Medicine; Visit Provider Internal Medicine
DX: Z00.00 Encounter for general adult medical examination without abnormal findings (principal); J45.909 Unspecified asthma, uncomplicated

== ENCOUNTER 2025-07-06 15:21 | Outpatient (AMB) | payer OTHER, SELFPAY ==
[2025-07-06 15:22] VITALS: BP 127/75; PULSE 81; RESP 16; TEMP 36.6; O2SAT 99; BMI 27.1
--- NOTE | 2025-07-06 15:22 | AM.OFFWIN_ITS ---
Intake Vital Signs 07/06/25 15:22 Height 4 ft 11 in Weight 134 lb BMI 27.1 BP 127/75 Blood Pressure Location Lt brachial Position Sitting Respiration 16 Pulse 81 Pulse Source Pulse Oximeter Temp 97.9 F Temp Source Oral Pulse Oximetry (%) 99 Oxygen Delivery Method Room Air Intake Visit Reasons: EP - ?Sinus Infection Intake Note: EP complains of dizziness, headache, nasal block, sneezing, feeling pressure over maxillae sinuses and the right ear since Wednesday. She developed mild cough last night as well. Patient Tobacco Use Status: Never used Tobacco Allergies ondansetron Allergy (Intermediate, Verified 07/06/25 15:36) Diarrhea Do you need a note to return to daycare/school/sports/work: No HPI HPI Comments History of Present Illness Details History of Present Illness The patient is a 59 year old female with a past medical history of asthma presenting with sinus symptoms - The patient reports symptoms that bega n on Wednesday, which she initially believed was a cold. - She describes sinus pressure in her ch eeks, right ear discomfort, and a nocturnal cough secondary to postnasal drainage. - Her nasal mucus is mostly clear, with an occasional yellowish tinge. - She denies fever, nausea, vomiting, an d shortness of breath. - She reports a history of asthma but re ports that she has been out of her albuterol inhaler as she has not required it recently - She has been self-treating with Tyleno l, saline nasal spray, and Flonase, which she started on Wednesday. Review of Systems Constitutional: Negative for fevers, chills HENT: reports rhinorrhea, congestion, sinus pressure, sinus pain, right ear discomfort. Negative for sore throat, ear pain, ear discharge Respiratory: Reports nocturnal cough. Denies shortness or breath or wheezing Cardiac: Negative for chest pain Gastrointestinal: Negative for abdominal pain, nausea, vomiting, diarrhea, Physical Exam General Appearance: Normal appearance, well developed. No acute distress ENT: External ears and ear canals normal. TM without erythema or bulging. Mild clear nasal discharge noted. Oropharynx clear without erythema or exudate. Pulmonary: No respiratory distress. Clear to auscultation bilaterally. Speaking in full sentences Cardiac: Regular rate and rhythm. No murmurs. Musculoskeletal: Moving all extremities spontaneously and against gravity Mental Status: Alert and Oriented x 3 Psychiatric: Normal mood. Normal affect. [facility] Medical History Tinnitus Asthma Environmental allergies Allergic rhinitis Asthma GERD (gastroesophageal reflux disease) Surgical History Hx of ovarian cystectomy Hx of colonoscopy Family History Mother No problems noted. Social History Housing: House Are you a primary anesthesiologist and critical care to a significant other at home: No Do you presently have visiting nurse or other home services: No Patient Tobacco Use Status: Never used Tobacco Tobacco use type: Cigarette e-Cigarette/Vaping Use: Never Used Second Hand Smoke Exposure: No service: No Current occupational status: employed Cognitive needs: No Hearing needs: No Vision needs: No Physical Exam Vital Signs: Last Vital Signs Temp 97.9 F 07/06/25 15:22 Pulse 81 07/06/25 15:22 Resp 16 07/06/25 15:22 BP 127/75 07/06/25 15:22 Pulse Ox 99 07/06/25 15:22 Oxygen Delivery Method Room Air 07/06/25 15:22 BMI result Body Mass Index 27.1 Assessment & Plan Assessment & Plan (1) Acute rhinosinusitis: Code(s): J01.90 - Acute sinusitis, unspecified Plan - Patient presents with URI symptoms for about 1 week - Symptoms appear consistent with a viral URI - Low suspicion for pneumonia given clear lungs to auscultation, afebrile, and patient saturating well--no indication for CXR. - Recommended to continue Flonase - Discussed antihistamines such as Zyrtec or Ariella to help with drainage and throat lozenges to help with nocturnal cough - Patient has a history of asthma but does not have her rescue inhaler. Albuterol inhaler was refilled in the case that patient develops wheezing or shortness of breath. - Due to history of sinus infections, prescription for Augmentin was sent to the pharmacy, to only be started if symptoms persist beyond 10 days. Recommended taking medication with food. - The patient was counseled on symptoms requiring a return visit, including fever, shortness of breath, or chest pain. Patient was informed and verbally consented to the use of an ambient scribe for clinic note documentation during the visit. Medications: New amoxicillin-pot clavulanate 875-125 mg 1 tab PO Q12H 10 tabs 0RF Refilled albuterol sulfate 90 mcg/actuation (ProAir HFA) 2 puffs inhalation Q6H PRN 6.7 grams 0RF Wheezing Patient Instructions: Get lots of rest. Maintain good clear fluid intake to stay well hydrated. Please practice frequent handwashing to prevent spread of germs. Recommend to continue using Flonase and saline nasal sprays to help with drainage and ear discomfort You may use Cepacol throat lozenges and Robitussin to help with cough Take tylenol as needed for aches, dosage according to package directions If symptoms worsen or do not improve after 10 days, may take antibiotic for potential sinus infection. Please take Augmentin with food and finish entire course of medication if started. If you develop worsening cough, chest pain, shortness of breath, fevers, please return to the walk in or follow up with PCP. Coding Level of Care Code Est Pt Level 3 (47253) Diagnoses Acute rhinosinusitis J01.90
== END 2025-07-06 16:15 | disposition home or self-care (01) ==
LOC: HO.HMCWIS 15:21
PROVIDERS: Visit Provider Family Medicine
DX: J01.90 Acute sinusitis, unspecified (principal)